=== PATIENT | male | born 1950 | race Caucasian/White ===

== ENCOUNTER 2020-10-22 16:35 | Inpatient (IN) | payer MEDICARE, OTHER ==
[~2020-10-22] VITALS: Ht 170.2 cm; Wt 59.0 kg
[2020-10-22 17:20] LABS: HEMOGLOBIN 11.9 gm/dl (14.0-17.5); WHITE BLOOD COUNT 9.2 K/UL (4.5-11.0)
[2020-10-22 17:23] LABS: RED BLOOD COUNT 4.01 M/UL (4.20-5.50)
[2020-10-22 17:46] LABS: BUN/CREATININE RATIO 24 (0-10)
[2020-10-22] MEDS ORDERED: ZOFRAN4 MG PO (19:51)
[2020-10-22] MEDS ORDERED: AZITHROMYCIN500 MG PO (19:53)
[2020-10-22] MEDS ORDERED: TESSALON PERLE100 MG PO (19:54)
[2020-10-22] MEDS ORDERED: DEXAMETHASONE 44 MG PO (19:54)
[2020-10-22] MEDS ORDERED: ALBUTEROL INHALER (19:56)
[2020-10-23 04:15] LABS: HEMOGLOBIN 12.5 gm/dl (14.0-17.5); RED BLOOD COUNT 4.33 M/UL (4.20-5.50)
[2020-10-23 04:19] LABS: WHITE BLOOD COUNT 6.7 K/UL (4.5-11.0)
[2020-10-23 04:31] LABS: BUN/CREATININE RATIO 30 (0-10)
[2020-10-24 04:36] LABS: HEMOGLOBIN 11.8 gm/dl (14.0-17.5); RED BLOOD COUNT 3.97 M/UL (4.20-5.50)
[2020-10-24 04:43] LABS: WHITE BLOOD COUNT 12.9 K/UL (4.5-11.0)
[2020-10-24 04:52] LABS: BUN/CREATININE RATIO 27 (0-10)
[2020-10-25 05:33] LABS: HEMOGLOBIN 10.9 gm/dl (14.0-17.5); RED BLOOD COUNT 3.76 M/UL (4.20-5.50); WHITE BLOOD COUNT 11.8 K/UL (4.5-11.0)
[2020-10-25 05:56] LABS: BUN/CREATININE RATIO 35 (0-10)
[2020-10-26 06:36] LABS: HEMOGLOBIN 10.4 gm/dl (14.0-17.5); RED BLOOD COUNT 3.63 M/UL (4.20-5.50); WHITE BLOOD COUNT 12.5 K/UL (4.5-11.0)
[2020-10-26 06:49] LABS: BUN/CREATININE RATIO 33 (0-10)
[2020-10-27 05:43] LABS: BUN/CREATININE RATIO 28 (0-10)
[2020-10-27 05:54] LABS: HEMOGLOBIN 10.1 gm/dl (14.0-17.5); RED BLOOD COUNT 3.65 M/UL (4.20-5.50); WHITE BLOOD COUNT 14.5 K/UL (4.5-11.0)
--- NOTE | 2020-10-27 08:29 | NUR ---
INFORMED DR CASAREZ THAT I THOUGHT PT NEEDED TO BE TRANSFERED TO PCU FOR CLOSER OBSERVATION , CHEST XRAY NOT INPROVING , SAID WORSE ON LEFT YESTERDAY , AND PT IS REQUIRING MORE OXYGEN VIA AIRVO, INCREASED TO 92% FIO2 AND 60 LITERS
[2020-10-28 08:37] LABS: HEMOGLOBIN 10.6 gm/dl (14.0-17.5); RED BLOOD COUNT 3.69 M/UL (4.20-5.50); WHITE BLOOD COUNT 18.3 K/UL (4.5-11.0)
[2020-10-28 08:56] LABS: BUN/CREATININE RATIO 29 (0-10)
[2020-10-28 09:13] LABS: HBSAG SCREEN Negative (Negative); HEP A AB, IGM Negative (Negative); HEP B CORE AB, IGM Negative (Negative); HEP C VIRUS AB <0.1 (0.0-0.9)
[2020-10-29 04:40] LABS: HEMOGLOBIN 11.7 gm/dl (14.0-17.5); WHITE BLOOD COUNT 18.7 K/UL (4.5-11.0)
[2020-10-29 04:43] LABS: RED BLOOD COUNT 4.06 M/UL (4.20-5.50)
[2020-10-29 05:48] LABS: BUN/CREATININE RATIO 44 (0-10)
--- NOTE | 2020-10-29 20:28 | NUR ---
PATIENT ANXIOUS AT THIS TIME. PATIENT COMPLAINED OF CONSTIPATION AND THEN REQUESTED MIRALAX TO BE ADMINISTERD AFTER FAILED ATTEMPTS TO USE THE RESTROOM ON THE BEDPAN. BEDPAN REMAINED UNDER THE PATIENT YET THE PATIENT WAS FOUND OUT OF THE BED. PATIENT EDUCATED ON THE IMPORTANCE OF STAYING IN THE BED. PATIENT STATED THAT HE UNDERSTOOD AND WOULD USE THE CALL GUDINO FOR ASSISTANCE. PATIENT THEN STATED BACK TO THIS NURSE THAT HE WAS NOT GOING TO GET OUT OF BED WITHOUT ASSISTANCE. PRN MEDICATIONS ADMINISTERED PER PATIENT REQUEST. PATIENT REMAINS ALERT AND ORIENTED AT THIS TIME. CALL LIGHT IN PATIENT'S HAND.
[2020-10-30 04:59] LABS: HEMOGLOBIN 11.4 gm/dl (14.0-17.5); RED BLOOD COUNT 3.98 M/UL (4.20-5.50); WHITE BLOOD COUNT 21.9 K/UL (4.5-11.0)
[2020-10-30 05:21] LABS: BUN/CREATININE RATIO 75 (0-10)
[2020-10-31 04:35] LABS: HEMOGLOBIN 10.8 gm/dl (14.0-17.5); RED BLOOD COUNT 3.67 M/UL (4.20-5.50); WHITE BLOOD COUNT 19.1 K/UL (4.5-11.0)
[2020-10-31 05:06] LABS: BUN/CREATININE RATIO 69 (0-10)
[2020-10-31 13:10] LABS: ORGANISM ID Not indicated. (.); SPECIMEN SOURCE Urine (.); STREPTOCOCCUS PNEUMONIAE AG Negative (Negative)
[2020-11-01 05:12] LABS: HEMOGLOBIN 10.9 gm/dl (14.0-17.5); RED BLOOD COUNT 3.82 M/UL (4.20-5.50); WHITE BLOOD COUNT 19.7 K/UL (4.5-11.0)
[2020-11-01 05:32] LABS: BUN/CREATININE RATIO 46 (0-10)
--- NOTE | 2020-11-02 02:12 | NUR ---
ED CAMARENA () GAVE PERMISSION TO INTUBATE VIA TELEPHONE AT [id number] DON FARNSWORTH AND NENA FARNSWORTH
[2020-11-02 08:18] LABS: BUN/CREATININE RATIO 33 (0-10)
[2020-11-02 09:37] LABS: HEMOGLOBIN 12.7 gm/dl (14.0-17.5); RED BLOOD COUNT 4.34 M/UL (4.20-5.50); WHITE BLOOD COUNT 24.4 K/UL (4.5-11.0)
[2020-11-03 04:52] LABS: HEMOGLOBIN 12.5 gm/dl (14.0-17.5); RED BLOOD COUNT 4.34 M/UL (4.20-5.50); WHITE BLOOD COUNT 26.3 K/UL (4.5-11.0)
[2020-11-03 05:14] LABS: BUN/CREATININE RATIO 30 (0-10)
[2020-11-04 04:57] LABS: HEMOGLOBIN 11.1 gm/dl (14.0-17.5)
[2020-11-04 05:05] LABS: RED BLOOD COUNT 3.82 M/UL (4.20-5.50); WHITE BLOOD COUNT 16.8 K/UL (4.5-11.0)
[2020-11-04 05:18] LABS: BUN/CREATININE RATIO 40 (0-10)
[2020-11-04 15:58] LABS: HEMOGLOBIN 12.1 gm/dl (14.0-17.5); RED BLOOD COUNT 4.12 M/UL (4.20-5.50)
[2020-11-04 16:32] LABS: BUN/CREATININE RATIO 45 (0-10)
[2020-11-04 16:34] LABS: WHITE BLOOD COUNT 36.5 K/UL (4.5-11.0)
--- NOTE | 2020-11-04 17:52 | NUR ---
[facility] CALLED TO DR HERNANDEZ AT [address] [facility] ORDERED 1840
[2020-11-05 05:16] LABS: HEMOGLOBIN 10.2 gm/dl (14.0-17.5); WHITE BLOOD COUNT 29.3 K/UL (4.5-11.0)
[2020-11-05 05:17] LABS: RED BLOOD COUNT 3.43 M/UL (4.20-5.50)
[2020-11-05 05:45] LABS: BUN/CREATININE RATIO 57 (0-10)
[2020-11-06 05:12] LABS: WHITE BLOOD COUNT 29.4 K/UL (4.5-11.0)
[2020-11-06 05:22] LABS: HEMOGLOBIN 7.5 gm/dl (14.0-17.5); RED BLOOD COUNT 2.65 M/UL (4.20-5.50)
[2020-11-06 05:29] LABS: BUN/CREATININE RATIO 75 (0-10)
[2020-11-06 12:54] LABS: HEMOGLOBIN 8.7 gm/dl (14.0-17.5); RED BLOOD COUNT 2.87 M/UL (4.20-5.50)
[2020-11-06 12:56] LABS: WHITE BLOOD COUNT 21.6 K/UL (4.5-11.0)
[2020-11-07 05:36] LABS: HEMOGLOBIN 8.5 gm/dl (14.0-17.5); RED BLOOD COUNT 2.86 M/UL (4.20-5.50); WHITE BLOOD COUNT 20.7 K/UL (4.5-11.0)
[2020-11-07 05:50] LABS: BUN/CREATININE RATIO 91 (0-10)
[2020-11-08 05:46] LABS: WHITE BLOOD COUNT 15.1 K/UL (4.5-11.0)
[2020-11-08 05:53] LABS: BUN/CREATININE RATIO 85 (0-10)
[2020-11-09 07:20] LABS: RED BLOOD COUNT 3.8 M/UL (4.20-5.50); WHITE BLOOD COUNT 8.9 K/UL (4.5-11.0)
[2020-11-09 07:21] LABS: HEMOGLOBIN 11.3 gm/dl (14.0-17.5)
[2020-11-09 07:50] LABS: BUN/CREATININE RATIO 87 (0-10)
[2020-11-10 07:43] LABS: RED BLOOD COUNT 3.96 M/UL (4.20-5.50)
[2020-11-10 07:50] LABS: BUN/CREATININE RATIO 81 (0-10)
[2020-11-10 07:52] LABS: WHITE BLOOD COUNT 25.3 K/UL (4.5-11.0)
[2020-11-10] MEDS ORDERED: HUMALOG 10100 UNITS/ SC (11:27)
[2020-11-10] MEDS ORDERED: PROTONIX40 MG PO (11:27)
[2020-11-10] MEDS ORDERED: LANTUS INS100 UTS/M1 SC (11:27)
[2020-11-10] MEDS ORDERED: VANCOCIN 125MG/2.5ML NG (11:27)
[2020-11-10] MEDS ORDERED: CENTRUM MU9 MG/15 ML PO (11:27)
[2020-11-10] MEDS ORDERED: LEVALBUTER1.25 MG/3 NEB (11:27)
[2020-11-10] MEDS ORDERED: BISACODYL10 MG PR (11:27)
[2020-11-10] MEDS ORDERED: ACETAMINOPHEN325 MG PO (11:27)
[2020-11-10] MEDS ORDERED: IPRAT-ALBUT 0.5-3 ML NEB (11:27)
[2020-11-10] MEDS ORDERED: BUDESONIDE0.5 MG/2 M NEB (11:27)
--- NOTE | 2020-11-10 23:06 | NUR ---
Pt has been having periods of tachypnea with high tidal volume. Xanax given per order. See MAR.
[2020-11-11 05:57] LABS: BUN/CREATININE RATIO 88 (0-10)
[2020-11-11 14:46] LABS: RED BLOOD COUNT 2.99 M/UL (4.20-5.50); WHITE BLOOD COUNT 16.8 K/UL (4.5-11.0)
[2020-11-12 05:29] LABS: HEMOGLOBIN 9.8 gm/dl (14.0-17.5); RED BLOOD COUNT 3.25 M/UL (4.20-5.50); WHITE BLOOD COUNT 17.1 K/UL (4.5-11.0)
[2020-11-12 06:22] LABS: BUN/CREATININE RATIO 68 (0-10)
[2020-11-13 05:24] LABS: HEMOGLOBIN 8.8 gm/dl (14.0-17.5); WHITE BLOOD COUNT 14.3 K/UL (4.5-11.0)
[2020-11-13 05:29] LABS: RED BLOOD COUNT 2.91 M/UL (4.20-5.50)
[2020-11-13 05:47] LABS: BUN/CREATININE RATIO 58 (0-10)
[2020-11-14 05:25] LABS: BUN/CREATININE RATIO 47 (0-10)
[2020-11-14 05:25] LABS: RED BLOOD COUNT 2.73 M/UL (4.20-5.50); WHITE BLOOD COUNT 12.1 K/UL (4.5-11.0)
== END 2020-11-14 22:12 | disposition expired | DRG 4 ==
LOC: ER1 16:35 → CDU 17:43 → MED SURG 4 17:43 → CCU 17:43 → MED SURG 4 19:15 → CCU 10-27 19:58
PROVIDERS: Emergency Medicine; Family Medicine; Internal Medicine; Internal Medicine Infectious Disease; Internal Medicine Pulmonary Disease; ADMIT Internal Medicine
PROC: 8E0ZXY6 Isolation (ICD-10-PCS; principal; 2020-10-22)
PROC: XW033E5 Introduction of Remdesivir Anti-infective into Peripheral Vein, Percutaneous Approach, New Technology Group 5 (ICD-10-PCS; 2020-10-22)
PROC: 3E0333Z Introduction of Anti-inflammatory into Peripheral Vein, Percutaneous Approach (ICD-10-PCS; 2020-10-22)
PROC: XW033F6 Introduction of Bamlanivimab Monoclonal Antibody into Peripheral Vein, Percutaneous Approach, New Technology Group 6 (ICD-10-PCS; 2020-10-22)
PROC: 3E033XZ Introduction of Vasopressor into Peripheral Vein, Percutaneous Approach (ICD-10-PCS; 2020-10-22)
PROC: XW13325 Transfusion of Convalescent Plasma (Nonautologous) into Peripheral Vein, Percutaneous Approach, New Technology Group 5 (ICD-10-PCS; 2020-10-27)
PROC: B24BZZ4 Ultrasonography of Heart with Aorta, Transesophageal (ICD-10-PCS; 2020-10-29)
PROC: 5A0945A Assistance with Respiratory Ventilation, 24-96 Consecutive Hours, High Flow/Velocity Cannula (ICD-10-PCS; 2020-11-04)
PROC: 0BH17EZ Insertion of Endotracheal Airway into Trachea, Via Natural or Artificial Opening (ICD-10-PCS; 2020-11-04)
PROC: 30233N1 Transfusion of Nonautologous Red Blood Cells into Peripheral Vein, Percutaneous Approach (ICD-10-PCS; 2020-11-04)
PROC: 02HV33Z Insertion of Infusion Device into Superior Vena Cava, Percutaneous Approach (ICD-10-PCS; 2020-11-04)
PROC: 0BJ08ZZ Inspection of Tracheobronchial Tree, Via Natural or Artificial Opening Endoscopic (ICD-10-PCS; 2020-11-09)
PROC: 0DH63UZ Insertion of Feeding Device into Stomach, Percutaneous Approach (ICD-10-PCS; 2020-11-09)
PROC: 0B113F4 Bypass Trachea to Cutaneous with Tracheostomy Device, Percutaneous Approach (ICD-10-PCS; 2020-11-09)
PROC: 5A1955Z Respiratory Ventilation, Greater than 96 Consecutive Hours (ICD-10-PCS; 2020-11-09)
PROC: 3E0336Z Introduction of Nutritional Substance into Peripheral Vein, Percutaneous Approach (ICD-10-PCS; 2020-11-09)
DX: U07.1 COVID-19 (principal); A41.89 Other specified sepsis; Z66 Do not resuscitate; R65.21 Severe sepsis with septic shock; J12.82 Pneumonia due to coronavirus disease 2019; J80 Acute respiratory distress syndrome; I26.93 Single subsegmental thrombotic pulmonary embolism without acute cor pulmonale; T79.7XXA Traumatic subcutaneous emphysema, initial encounter; J15.8 Pneumonia due to other specified bacteria; D65 Disseminated intravascular coagulation [defibrination syndrome]; R57.1 Hypovolemic shock; D62 Acute posthemorrhagic anemia; K62.5 Hemorrhage of anus and rectum; G93.1 Anoxic brain damage, not elsewhere classified; T38.0X5A Adverse effect of glucocorticoids and synthetic analogues, initial encounter; R13.10 Dysphagia, unspecified; I07.1 Rheumatic tricuspid insufficiency; E87.70 Fluid overload, unspecified; K29.70 Gastritis, unspecified, without bleeding; D69.6 Thrombocytopenia, unspecified; F41.9 Anxiety disorder, unspecified; T38.3X5A Adverse effect of insulin and oral hypoglycemic [antidiabetic] drugs, initial encounter; I48.0 Paroxysmal atrial fibrillation; R73.9 Hyperglycemia, unspecified; D72.828 Other elevated white blood cell count; Z79.01 Long term (current) use of anticoagulants; Z87.891 Personal history of nicotine dependence
CPT/HCPCS: ECHO; 31500; 36415; 36430; 36600; 71045; 71275; 74018; 80048; 80053; 80074; 80076; 80202; 82272; 82550; 82553; 82728; 82803; 82962; 83036; 83605; 83615; 83735; 83874; 83880; 84100; 84484; 85014; 85018; 85025; 85027; 85379; 85384; 85610; 85652; 85730; 86140; 86850; 86900; 86901; 86920; 86927; 87040; 87070; 87077; 87081; 87086; 87186; 87205; 87206; 87278; 87449; 87899; 93005; 93306; 93970; 94003; 94640; 94660; 94664; 94760; 96374; 96375; 99285; A6212; C1769; C9113; J0295; J0330; J0456; J0692; J0696; J1100; J1160; J1205; J1335; J1650; J1885; J1940; J2060; J2185; J2248; J2250; J2370; J2405; J2704; J2920; J2930; J3010; J3262; J3370; J3480; J7030; J7040; J7050; J7070; J7120; M0239; P9016; Q9967